=== PATIENT | female | born 1955 | race Caucasian/White ===

== ENCOUNTER 2017-05-02 18:10 | Emergency (ER) | payer BC, OTHER ==
[~2017-05-02] VITALS: Ht 175.3 cm; Wt 79.3 kg
[~2017-05-02 18:10] MED LIST: ATOR10TA9 PO; CA C1TAB62 PO; CELE200C PO; CRAN450C PO; ESTR10TA PO; FESO8TAB PO; GING250C PO; LACT1CAP11 PO; LEVO88TA2 PO; MULT-658 PO; OMEG1CAP34 PO; OMEP40CA6 PO; SUMA50TA4 PO; UBID100C24 PO; URSO300C27 PO; VALA500T4 PO
[2017-05-02 18:12] VITALS: BP 137/82
[2017-05-02] MEDS ORDERED: RANI150T8 PO (18:48)
[2017-05-02] MEDS ORDERED: PROCHLORPERAZINE 5 MG/ML, 2ML ONE (19:00)
[2017-05-02] MEDS ORDERED: DIPHENHYDRAMINE 50 MG/ML, 1ML IVPush ONE (19:00)
[2017-05-02] MEDS ORDERED: SODIUM CHLORIDE 0.9% 1,000ML IVBOLUS ONE (19:00)
[2017-05-02] MEDS ORDERED: PROCHLORPERAZINE 5 MG/ML, 2ML IVPush ONE (19:00)
[2017-05-02] MEDS ORDERED: KETOROLAC 30 MG/1 ML IVPush ONE (19:00)
[2017-05-02] MEDS ORDERED: SODIUM CHLORIDE FLUSH 10ML SYR IVF ONE (19:00)
[2017-05-02] MEDS ORDERED: DIPHENHYDRAMINE 50 MG/ML, 1ML ONE (19:01)
[2017-05-02] MEDS ORDERED: KETOROLAC 30 MG/1 ML ONE (19:01)
== END 2017-05-02 21:11 | disposition home or self-care (01) ==
LOC: ED 20:05
DX: G43.009 Migraine without aura, not intractable, without status migrainosus (principal)
CPT/HCPCS: 96361; 96374; 96375; 99284; J0780; J1200; J1885; J7030

== ENCOUNTER 2020-02-19 16:48 | Emergency (ER) | payer MEDICARE, OTHER ==
[~2020-02-19] VITALS: Ht 175.3 cm; Wt 85.2 kg
[~2020-02-19 16:48] MED LIST changes: +OMEP40CA42 PO; -OMEP40CA6 PO; +RANI-467 PO
[2020-02-19] MEDS ORDERED: KETOROLAC 30 MG/1 ML ONE (17:23)
[2020-02-19] MEDS ORDERED: METOCLOPRAMIDE 5 MG/ML, 2ML ONE ×2 (17:23→18:46)
[2020-02-19] MEDS ORDERED: SODIUM CHLORIDE FLUSH 10ML SYR IVF ONE (17:30)
[2020-02-19] MEDS ORDERED: SODIUM CHLORIDE 0.9% 1,000ML IVBOLUS ONE (17:30)
[2020-02-19] MEDS ORDERED: METOCLOPRAMIDE 5 MG/ML, 2ML IVPush ONE ×2 (17:30→19:00)
[2020-02-19] MEDS ORDERED: KETOROLAC 30 MG/1 ML IVPush ONE (17:30)
[2020-02-19 18:16] VITALS: BP 175/100
--- NOTE | 2020-02-19 18:17 | NUR ---
PT RESTING IN [facility]. BLANKETS PROVIDED. NAD. IV FLUIDS INFUSING AT THIS TIME
--- NOTE | 2020-02-19 18:19 | NUR ---
PT BED ADJUSTED, PT PROVIDED WITH PILLOW.
== END 2020-02-19 19:37 | disposition home or self-care (01) ==
LOC: ED 17:00
DX: G43.009 Migraine without aura, not intractable, without status migrainosus (principal); R11.2 Nausea with vomiting, unspecified
CPT/HCPCS: 96361; 96374; 96375; 96376; 99284; J1885; J2765; J7030

== ENCOUNTER 2020-08-06 12:13 | Emergency (ER) | payer MEDICARE, OTHER ==
[~2020-08-06] VITALS: Ht 175.3 cm; Wt 86.0 kg
--- NOTE | 2020-08-06 12:50 | NUR ---
patient w/ c/o bright red rectal bleeding x 1 day. recently constipated for 3 days and had used enema that aided with constipation, after having normal colored stool, patient states bright kyle blood has been coming out since yesterday. Denies blood thinners. pt states she had pain and pressure in bilateral lower abdomen. pt with significant history of migraines and takes excedrine and tylenol frequently. patient denies feeling dizziness or abdominal pain at this time. patient attached to monitors. vss. nadn. at bedside. awaiting orders.
--- NOTE | 2020-08-06 13:29 | NUR ---
This RN at bedside to witness rectal exam.
[2020-08-06 13:58] LABS: ANION GAP 8 mmol/L (5-15); CALCIUM 9.3 mg/dL (8.5-10.1); CHLORIDE 101 mmol/L (98-107); CREATININE 1.19 mg/dL (0.55-1.02)
[2020-08-06 14:00] LABS: BASOPHILS % (AUTO) 1 % (0-1); EOSINOPHILS % (AUTO) 0 % (1-7); LYMPHOCYTES % (AUTO) 20 % (22-44); MEAN CORPUSCULAR HEMOGLOBIN 32.1 pg (27.0-34.8); MEAN CORPUSCULAR HGB CONC 34.5 g/dL (32.4-35.8); MEAN PLATELET VOLUME 9.4 fL (7.4-10.4); MONOCYTES % (AUTO) 9 % (2-9); NEUTROPHILS % (AUTO) 70 % (42-75); PLATELET COUNT 244 x10^3/uL (130-400); RED CELL DISTRIBUTION WIDTH 13.2 % (9.6-15.2)
[2020-08-06 14:01] LABS: MD NO
--- NOTE | 2020-08-06 14:19 | NUR ---
break rn- pt resting in bed, call light in reach.
[2020-08-06 14:50] VITALS: BP 104/80
--- NOTE | 2020-08-06 14:51 | NUR ---
PATIENT SITTING UP IN BED, VSS, NADN.
--- NOTE | 2020-08-06 15:07 | NUR ---
patient to bathroom with steady gait
== END 2020-08-06 15:34 | disposition home or self-care (01) ==
LOC: ED 14:47
DX: K62.5 Hemorrhage of anus and rectum (principal); R11.2 Nausea with vomiting, unspecified; I10 Essential (primary) hypertension; E78.5 Hyperlipidemia, unspecified; G43.909 Migraine, unspecified, not intractable, without status migrainosus
CPT/HCPCS: 36415; 80048; 85025; 99283

== ENCOUNTER 2020-11-20 10:17 | Emergency (ER) | payer MEDICARE, OTHER ==
[~2020-11-20] VITALS: Ht 175.3 cm; Wt 84.5 kg
[~2020-11-20 10:17] MED LIST changes: -OMEP40CA42 PO; +OMEP40CA8 PO
[2020-11-20 10:32] VITALS: BP 154/83
--- NOTE | 2020-11-20 11:18 | NUR ---
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
== END 2020-11-20 11:55 | disposition home or self-care (01) ==
LOC: ED 11:49
DX: B34.9 Viral infection, unspecified (principal); R05 Cough; I10 Essential (primary) hypertension; Z90.49 Acquired absence of other specified parts of digestive tract; Z90.89 Acquired absence of other organs
CPT/HCPCS: 71045; 99283